=== PATIENT | male | born 1955 | race Caucasian/White ===

== ENCOUNTER 2017-01-27 08:45 | Day surgery (SDC) | payer MEDICAID, OTHER ==
[2017-01-27] MEDS ORDERED: LIDOCAINE 1% 2 ML INJ ID PRN (09:09)
[2017-01-27] MEDS ORDERED: LR 1,000 ML IV ONE (09:09)
--- NOTE | 2017-01-27 11:00 | PDANEPAE ---
ANE History of Present Illness 61 yo M here for EGD ANE Past Medical History - Cardiovascular History Hx Hypertension: No Hx Arrhythmias: No Hx Chest Pain: No Hx Coronary Artery / Peripheral Vascular Disease: No Hx CHF / Valvular Disease: No Hx Palpitations: No - Pulmonary History Hx COPD: No Hx Asthma/Reactive Airway Disease: No Hx Recent Upper Respiratory Infection: No Hx Oxygen in Use at Home: No Hx Sleep Apnea: No Sleep Apnea Screening Result - Last Documented: Negative - Neurologic History Hx Cerebrovascular Accident: No Hx Seizures: No Hx Dementia: No - Endocrine History Hx Diabetes: No - Renal History Hx Renal Disorders: No - Liver History Hx Hepatic Disorders: No - Neurological & Psychiatric Hx Hx Neurological and Psychiatric Disorders: No - Cancer History Hx Cancer: No - Congenital Disorder History Hx Congenital Disorders: No - GI History Hx Gastrointestinal Disorders: Yes Gastrointestinal History Comment: reflux with bad cough - Other Health History Other Health History: none - Chronic Pain History Chronic Pain: No - Surgical History Prior Surgeries: na ANE Review of Systems Review of Systems: - Exercise capacity METS (RN): 4 METS ANE Patient History - Allergies Allergies/Adverse Reactions: No Known Allergies Allergy (Verified 01/21/17 10:37) - Home Medications Home Medications: Prilosec Otc 01/21/17 [Last Taken 01/27/17 06:45] - NPO status NPO Status: no food or drink >8 hours NPO Since - Liquids (Date): 01/26/17 NPO Since - Liquids (Time): 23:00 NPO Since - Solids (Date): 01/26/17 NPO Since - Solids (Time): 19:30 - Anes Hx Anes Hx: no prior problems - Smoking Hx Smoking Status: Former smoker - Alcohol Use Alcohol Use: None - Family Anes Hx Family Anes Hx: none Family Hx Anesthesia Complications: none ANE Labs/Vital Signs - Vital Signs Blood Pressure: 104/63 Heart Rate: 53 Respiratory Rate: 16 O2 Sat (%): 93 Height: 175.26 cm Weight: 83.915 kg ANE Physical Exam - Airway Neck exam: FROM Mallampati Score: Class 2 Mouth exam: normal dental/mouth exam - Pulmonary Pulmonary: no respiratory distress, clear to auscultation - Cardiovascular Cardiovascular: regular rate and rhythym, no murmur, rub, or gallop - ASA Status ASA Status: II ANE Anesthesia Plan Anesthesia Plan: GA with mask Total IV Anesthesia: Yes
[2017-01-27] MEDS ORDERED: PROPOFOL/EMULSION 500 MG/50 ML BOTTLE IV ONE (11:02)
[2017-01-27] MEDS ORDERED: NALOXONE HCL 0.4 MG/ML INJ IVP PRN (11:08)
[2017-01-27] MEDS ORDERED: ACETAMINOPHEN 500 MG TAB PO PRN (11:08)
--- NOTE | 2017-01-27 11:18 | PDGENHP ---
History & Physical Chief Complaint: gerd, cough History of Present Illness: gerd, cough Pertinent Past, Social, Family History: revieweed Relevant Physical Exam: nad Cardiorespiratory Assessment: rrr. ctab
--- NOTE | 2017-01-27 11:23 | GIREPORT ---
[facility] Surgical Services - Endoscopy Department Patient Name: Jeromy Cohen Procedure Date: 01/27/2017 10:59 AM Patient Type: Outpatient Attending MD/ ER Physician: Mio Khan MD Procedure: Upper GI endoscopy Indications: Heartburn, Suspected esophageal reflux, Chronic cough Providers: Mio Khan MD Medicines: Propofol per Anesthesia Complications: No immediate complications. Description of Procedure: After obtaining informed consent, the endoscope was passed under direct vision. Throughout the procedure, the patient's blood pressure, pulse, and oxygen saturations were monitored continuous ly. The Endoscope was introduced through the mouth, and advanced to the second part of duodenum. The upper GI endoscopy was accomplished without difficulty. The patient tolerated the procedure well . Findings: The Z-line was irregular. Biopsies were taken with a cold forceps for histology. Diffuse mildly erythematous mucosa was found in the gastric body and in the gastric antrum. Biop sies were taken with a cold forceps for Helicobacter pylori testing. The examined duodenum was normal. A small hiatal hernia was present. A few medium sessile polyps were found in the gastric body. Biopsies were taken with a cold forc eps for histology. Estimated Blood Loss: Estimated blood loss: none. Post Op Diagnosis: - Z-line irregular. Biopsied. - Erythematous mucosa in the gastric body and antrum. Biopsied. - Normal examined duodenum. - Small hiatal hernia. - Gastric polyps, likely fundic gland polyps (benign) s/p biopsies. Recommendation: - Patient has a contact number available for emergencies. The signs and symptoms of potential de layed complications were discussed with the patient. Return to normal activities tomorrow. Written discharge instructions were provided to the patient. - Resume previous diet. - Continue present medications. - Likely will benefit from long-term omeprazole, titrated to lowest dose that controls symptoms. - Return to primary care physician as previously scheduled. - Thank you for allowing me to participate in the care of this patient. Attending Participation: I personally performed the entire procedure. I personally performed the entire procedure without the assistance of a fellow, resident or higher level teaching assistant. Mio Khan MD Mio Khan MD 01/27/2017 11:23:21 AM Number of Addenda: 0 Note Initiated On: 01/27/2017 10:59 AM [email or web address]
[2017-01-27 11:48] VITALS: TEMP 97.2
[2017-01-27 12:03] VITALS: BP 120/69; RESP 14
[2017-01-27 12:04] VITALS: PULSE 51; O2SAT 94
--- NOTE | 2017-01-27 13:35 | POSTANESTH ---
Post Anesthetic Evaluation Cardiovascular Status: Normal, Stable, Similar to Pre-Op Cond Respiratory Status: Normal, Stable, Similar to Pre-op Cond. Level of Consciousness/Mental Status: Can Participate in Eval, Alert and Oriented Pain Control: Adequate, Prn Tx Ordered Nausea/Vomiting Control: Adequate, Prn Tx Ordered Complications Possibly Related to Anesthesia: None Noted
== END 2017-01-27 12:22 | disposition home or self-care (01) ==
LOC: FSGY 08:45
PROVIDERS: ATTEND Internal Medicine
DX: K29.50 Unspecified chronic gastritis without bleeding (principal); K22.70 Barrett's esophagus without dysplasia; K31.7 Polyp of stomach and duodenum; K21.9 Gastro-esophageal reflux disease without esophagitis
CPT/HCPCS: J2704